=== PATIENT | male | born 1970 | race Caucasian/White ===

== ENCOUNTER 2018-11-26 08:29 | Outpatient (CLI) | payer BC | END 2018-11-26 23:59 | disposition home or self-care (01) | LOC: STAR 08:29 | PROVIDERS: ATTEND Neurological Surgery | DX: Z01.818 Encounter for other preprocedural examination (principal); M48.02 Spinal stenosis, cervical region; R00.0 Tachycardia, unspecified | CPT/HCPCS: 36415; 71046; 80053; 85025; 85610; 85730; 93005 ==

== ENCOUNTER 2018-12-07 05:42 | Day surgery (SDC) | payer BC ==
[~2018-12-07] VITALS: Ht 170.2 cm; Wt 79.0 kg
[~2018-12-07 05:42] MED LIST: CYCL-259 PO; DAPA1TAB5 PO; DULA1.5P SC; LOSA50TA14 PO; OXYC-307 PO
[2018-12-07] MEDS ORDERED: LACTATED RINGERS 1,000 ML IV SCH (06:05)
[2018-12-07] MEDS ORDERED: ACETAMINOPHEN 500 MG TABLET PO ONE (07:00)
[2018-12-07] MEDS ORDERED: GABAPENTIN 300 MG CAPSULE PO ONE (07:00)
[2018-12-07] MEDS ORDERED: ONDANSETRON ODT 8 MG PO ONE (07:00)
[2018-12-07] MEDS ORDERED: SUCCINYLCHOLINE 20 MG/ML, 10ML ONE (07:12)
[2018-12-07] MEDS ORDERED: FENTANYL PF 250 MCG/5ML ONE (07:12)
[2018-12-07] MEDS ORDERED: CEFAZOLIN 1,000 MG ONE ×2 (07:12)
[2018-12-07] MEDS ORDERED: DEXAMETHASONE 4 MG/ML, 1ML ONE ×2 (07:12)
[2018-12-07] MEDS ORDERED: ROCURONIUM 10MG/ML,5ML ONE (07:12)
[2018-12-07] MEDS ORDERED: PROPOFOL 10 MG/ML, 20ML ONE (07:12)
[2018-12-07] MEDS ORDERED: MIDAZOLAM 1 MG/ML, 2ML ONE (07:12)
[2018-12-07] MEDS ORDERED: LIDOCAINE-MPF 2% ,5ML ONE (07:13)
[2018-12-07] MEDS ORDERED: BACITRACIN 50,000 UNIT ONE (07:14)
[2018-12-07] MEDS ORDERED: THROMBIN 5,000 UNIT VIAL TP ONE (07:14)
[2018-12-07] MEDS ORDERED: BUPIVACAINE/EPI 0.5% 1:200K ONE (07:14)
[2018-12-07] MEDS ORDERED: LIDOCAINE 4%, 4 ML SYR/CANN TP ONE (07:18)
[2018-12-07] MEDS ORDERED: ONDANSETRON 2MG/ML, 2ML IV PRN (07:30)
[2018-12-07] MEDS ORDERED: MEPERIDINE/PF 25MG/0.5ML IVPush PRN (07:30)
[2018-12-07] MEDS ORDERED: ALBUTEROL SULFATE 2.5 MG/3 ML NPPB PRN (07:30)
[2018-12-07] MEDS ORDERED: METOCLOPRAMIDE 5 MG/ML, 2ML IV PRN (07:30)
[2018-12-07] MEDS ORDERED: hydrALAzine 20 MG/ML, 1ML IV PRN (07:30)
[2018-12-07] MEDS ORDERED: LABETALOL 5MG/ML, 20ML IV PRN (07:30)
[2018-12-07] MEDS ORDERED: HYDROmorphone 2 MG/ML, 1ML IVPush PRN (07:30)
[2018-12-07] MEDS ORDERED: FENTANYL PF 100 MCG/2ML IV PRN (07:30)
[2018-12-07] MEDS ORDERED: LORazepam 2 MG/ML, 1ML IVPush PRN (07:30)
[2018-12-07] MEDS ORDERED: OXYcodone 5 MG/5 ML ORAL.SOL UDC PO PRN (07:30)
[2018-12-07] MEDS ORDERED: NEOSTIGMINE 1 MG/ML, 10ML ONE (07:53)
[2018-12-07] MEDS ORDERED: PHENYLEPHRINE 10 MG/ML ONE (07:53)
[2018-12-07] MEDS ORDERED: GLYCOPYRROLATE 0.2MG/1ML, 5ML ONE (07:53)
[2018-12-07] MEDS ORDERED: ESMOLOL 100 MG/10 ML ONE (08:13)
[2018-12-07] MEDS ORDERED: OXYcodone 5 MG/5 ML ORAL.SOL UDC ONE (09:55)
[2018-12-07] MEDS ORDERED: FENTANYL PF 100 MCG/2ML ONE (09:55)
[2018-12-07] MEDS ORDERED: DIAZEPAM 5 MG TABLET ONE (11:30)
[2018-12-07] MEDS ORDERED: OXYcodone/APAP 10/325MG TABLET PO PRN (11:30)
[2018-12-07] MEDS ORDERED: DIAZEPAM 5 MG TABLET PO PRN (11:30)
== END 2018-12-07 13:30 | disposition home or self-care (01) ==
LOC: OUT 05:42
PROVIDERS: ATTEND Neurological Surgery
DX: M48.02 Spinal stenosis, cervical region (principal); M54.12 Radiculopathy, cervical region; I10 Essential (primary) hypertension; E11.9 Type 2 diabetes mellitus without complications; J45.909 Unspecified asthma, uncomplicated; Z87.891 Personal history of nicotine dependence; Z79.899 Other long term (current) drug therapy
CPT/HCPCS: 63045; 63048; 72040; 82962; C1713; J0330; J0690; J1100; J2250; J2370; J2704; J2710; J3010; J7120